=== PATIENT | female | born 1990 | race Caucasian/White ===

== ENCOUNTER → 2017-03-04 | Outpatient (REF) | payer OTHER | LOC: M LAB REF 17:06 | PROVIDERS: ATTEND Advanced Practice Midwife | DX: Z36 Encounter for antenatal screening of mother (principal) ==

== ENCOUNTER 2017-03-27 12:28 | Emergency (ER) | payer OTHER ==
[~2017-03-27] VITALS: Ht 162.6 cm; Wt 113.7 kg
[2017-03-27 12:31] VITALS: BP 117/69
[2017-03-27] MEDS ORDERED: PREN1CHW4 PO (12:41)
--- NOTE | 2017-03-27 14:05 | REP ---
Clinical: Left lower extremity pain and swelling . Technique: Bailey scale and color Doppler evaluation using linear high frequency transducer. Findings: Ultrasound examination of the left lower extremity deep venous structures from the common femoral vein to the popliteal vein demonstrates normal compressibility flow and wave patterns in response to respiration and augmentation. There is no evidence for deep venous thrombosis. At the site of erythema, thrombosed subcutaneous varicose veins are identified and suggest thrombophlebitis. Impression: No evidence for deep venous thrombosis. Thrombophlebitis at the site of erythema. Signed by Carlos Sheth MD 03/27/2017 01:56 P
== END 2017-03-27 14:31 | disposition home or self-care (01) ==
LOC: M ED 12:28
DX: O22.22 Superficial thrombophlebitis in pregnancy, second trimester (principal); Z3A.23 23 weeks gestation of pregnancy

== ENCOUNTER → 2017-04-03 | Outpatient (REF) | payer OTHER ==
[~2017-04-03] MED LIST: PREN1CHW4 PO
== END ==
LOC: M LAB REF 16:38
PROVIDERS: ATTEND Advanced Practice Midwife
DX: Z34.82 Encounter for supervision of other normal pregnancy, second trimester (principal)

== ENCOUNTER 2017-05-22 17:22 | Emergency (ER) | payer OTHER ==
[~2017-05-22] VITALS: Ht 162.6 cm; Wt 109.0 kg
--- NOTE | 2017-05-22 18:40 | REPUSA ---
CLINICAL HISTORY: Calf pain. COMMENTS: Real time sonography with duplex doppler of the left lower extremity was performed with attention to the major deep venous structures. Evaluation reveals the left common femoral, superficial femoral and popliteal veins to be completely compressible without intraluminal thrombus. There is normal spontaneous phasic flow and augmentation. The greater saphenous/common femoral vein junction is patent. Note is made of a superficial clot in the region of clinical concern inferior to the knee laterally. IMPRESSION: No evidence of DVT in left lower extremity. Superficial clot in the region of clinical concern inferior to the knee laterally. Thank you for your kind referral of this patient.
[2017-05-22 19:06] VITALS: BP 126/71
== END 2017-05-22 19:09 | disposition home or self-care (01) ==
LOC: M ED 17:22
DX: I80.02 Phlebitis and thrombophlebitis of superficial vessels of left lower extremity (principal); I83.92 Asymptomatic varicose veins of left lower extremity; Z72.0 Tobacco use

== ENCOUNTER 2017-06-15 17:31 | Outpatient (CLI) | payer OTHER ==
[~2017-06-15] VITALS: Ht 162.6 cm; Wt 122.0 kg
[2017-06-15 18:34] VITALS: BP 111/60
--- NOTE | 2017-06-16 01:22 | IPNPDOC ---
Text Note Date of Service The patient was seen on 06/16/17 at 1900. NOTE Subjective: Patient is a 26 year-old female who is a at 34 weeks gestation with an SABRINA of 07/26/17. She initiated her care in the [facility] with [facility]. Her has been complicated by limited OB care as she has been seen only 3 times for this . She has not been seen for 10 weeks. The patient has a history of bipolar disorder and stopped taking her medications with her . [facility] of sharp, shooting abdominal pain in the area that the patient had her mesh placed for an abdominal hernia. The patient reports that she has a sharp stabbing pain in one area that is worse when the baby moves or when she coughs. Area is right where her incision is and slightly below it. Denies contractions, leaking of fluid, or vaginal bleeding. Reports baby to be very active. Denies changes in bowel habits. Objective: FHR 120, moderate variability, positive accelerations, no decelerations. Contractions are occasional. Abdomen: tenderness with palpation only over site patient is complaining about. Palpating soft. No rebound tenderness noted or tenderness or pain with palpation in other quadrants. Pain at 11 o'clock to umbilicus, right upper quadrant. Assessment: IUP at 34 weeks gestation, abdominal pain related to hernia repair , Category I FHR tracing Plan: Patient encouraged to make appointment to get caught up on her care. Office policy discussed with patient. She is aware that if she continues to be non-compliant with f/u and recommendations she will be discharge from the practice. She is encourage to be seen by psych/walk in clinic. Patient has a history of bipolar disorder and is currently off of her medications. She reports she has had no problems. Reviewed comfort measures with patient to decrease abdominal pain. Encouraged to get an abdominal binder, use warm pack, acetaminophen 1000 mg every 8 hours as needed for pain, and a warm bath as needed. Education on access to care, labor signs and symptoms, movements, and danger signs to report. VS,Fishbone, I+O VS, Fishbone, I+O Vital Signs Date Time Temp Pulse Resp B/P (MAP) Pulse Ox O2 Delivery O2 Flow Rate FiO2 06/15/17 18:34 98.2 18 111/60 (77) MARLEN COLLINS CNM Jun 16, 2017 01:22 Dyllan Holliday DO Jun 18, 2017 18:39
== END 2017-06-15 19:18 | disposition home or self-care (01) ==
LOC: M LDO 17:31
PROVIDERS: ATTEND Advanced Practice Midwife
DX: O26.893 Other specified pregnancy related conditions, third trimester (principal); R10.11 Right upper quadrant pain; Z3A.34 34 weeks gestation of pregnancy; O99.343 Other mental disorders complicating pregnancy, third trimester; F31.9 Bipolar disorder, unspecified; Z91.19 Patient's noncompliance with other medical treatment and regimen